=== PATIENT | male | born 1965 | race Caucasian/White ===

== ENCOUNTER 2025-01-11 20:16 | Emergency (ER) | payer OTHER, SELFPAY ==
--- OUTSIDE RECORDS SUMMARY | 2020-03-15 09:01 | XMS_ITS | Continuity of Care Document ---
Author Organization [facility] Address [address] [address] [place] [address] Phone Care Team Providers Care Web Merchandiser Name Role Phone Kierra Peraza CRNA Unavailable Unavailab le Allergies, Adverse Reactions, Alerts Substance Reaction Status Criticality No Known Allergies Active No Inform ation Medications Medication Instructions Dosage Effective Dates (start - stop) Status Comments No Drug Therapy Prescribed Procedures Procedure Date Colonoscopy Flex; W/remov Les- Level Iv-surg Path Gross/micro Advance Directives Directive Yes / No Effective Date File Name No Information Encounters Encounter Description Practice Location Reason(s) For Visit Diagnoses Date Provider Providers Copied on Encounter [facility], [address] [address], [place], [place], [id number], tel:[phone] [facility] No Information 0 Karmen Lozada . [address] [facility], [facility] [address], [place], [place], [id number] , [place]. tel:[phone] Referring Provider: Kervin Rene MD M, [address] [facility] [address], [place], [address] . tel:[phone] [facility], [address] [address], [place], [place], [address], [place] tel:[phone] [facility] Colorectal polyp detected on colonoscopyDivertic ulosis of colon without diverticulitisHisto ry of adenomatous polyp of colonEncounter for screening for malignant neoplasm of colonBenign neoplasm of descending colonDvrtclos of lg int w/o perforation or abscess w/o bleedingBenign neoplasm of descending colonPersonal history of colonic polyps 0 Anju Galeana. [address] [facility], [facility] [address], [place], [place], [id number] , [place]. [phone] Referring Provider: Kendall Wilcox MD E, [address], [place], [address]. tel:[phone] [facility], [address] [address], [place], [place], [id number], [place] tel:[phone] [place] [facility] No Information 0 Anju Galeana. [address] [facility], [facility] [address], [place], [place], [id number] , [place]. tel:[phone] Family History Family Member Type Diagnosis Age At Onset No Information Immunizations Vaccine Date Status Comments Influenza administered Note: [facility] bi-d irectional interface ; Source: Other Registry influenza, live, intranasal, quadrivalent administered Note: [facility] bi-direct ional interface ; Source: Other Registry influenza, live, intranasal, quadrivalent administered Note: [facility] bi-direct ional interface ; Source: Other Registry influenza virus vaccine, eileen e, attenuated, for intranasal use administered Note: MII C bi- directional interface ; Source: Other Registry influenza virus vaccine, eileen e, attenuated, for intranasal use administered Note: MII C bi- directional interface ; Source: Other Registry influenza virus vaccine, eileen e, attenuated, for intranasal use administered Note: MII C bi- directional interface ; Source: Other Registry Payers Payer name Insurance type Covered democrat ID Authoriza tion(s) No Information Social History Type Description Quantity Date Captured Comments Sex Male Smoking Status No Information Chief Complaint And Reason For Visit No Information Reason For Referral Reason For Referral No Information History Of Present Illness Encounter Date Complaint History Of Prese nt Illness No Information Functional Status Date Functional Assessmen t No Information Medications Administered Medication Instructions Dosage Effective Dates (start - stop) Status Comments No Drug Therapy Prescribed Instructions Date Instruction Additional Infor mation Diverticulosis/Diverticulitis Re lated to Colorectal polyp detected on colonoscopy Colon Polyps Related to Color ectal polyp detected on colonoscopy Colon Cancer Prevention Related to Colorectal polyp detected on colonoscopy High Fiber Diet Related to Color ectal polyp detected on colonoscopy Assessments Type Assessment Date No Information Patient Care Teams Name Effective Dates (start - stop) Status Members No Information
--- OUTSIDE RECORDS SUMMARY | 2025-01-11 20:20 | XMS_ITS | Clinical Summary ---
Author Organization [facility] Address [address] [place] [address] Care Team Providers Care Shaker Operator Name Role Phone Kendall Wilcox MD Primary Care Provider [phone] Allergies No known active allergies Medications carbamide peroxide (DEBROX) 6.5 % otic solutionIndicati ons:Impacted cerumen, bilateral Place 5 Drops into left ear two times daily. 15 mL 01/13/20 22 Active Additional Information Patient not taking.Reported on 11/10/2024 losartan (COZAAR) 25 mg tabletIndication s:Essential hypertension Take 1 Tablet (25 mg) by mouth once daily in the evening. 90 Tablet 1 11/11/19 25 Active acetaminophen (TYLENOL EXTRA STRGTH) 500 mg tabletIndication s:Fever in adult Take 2 Tablets (1,000 mg) by mouth one time if needed for Temp>101.5F (38.6C) (temp > 100.5) for up to 1 day. Max acetaminophen dose: 4000mg in 24 hrs. 2 Tablet 01/12/20 25 025 Active Active Problems Problem Noted Date Diagnosed Date Other hyperlipidemia 07/24/2017 Adenomatous colon polyp 10/30/2016 Overview (10/30/2016): Colonoscopy 10/2016 polyp repeat in 3 years at [facility] with propofol, patient has vagovagal response at clinic Eosinophilic esophagitis 08/26/2015 Overview (08/26/2015): EGD 08/2015 eosinophilic esophagitis Encounters Date Type Department Care Team Description 01/11/2025 5:35 PM CDT Ancillary Procedure [facility] [address] [place] [address] Arrived 01/11/2025 4:00 PM CDT Office Visit [facility] [address] [place] [phone] Rosa Holcomb PA General Illness/Other (generalize fatigue and weakness, with chills, headaches, with right ear pain ) 01/11/2025 Travel 12/11/2024 9:00 AM CDT Orders Only [facility] [address] [place] [address] Laboratory, [facility] 12/11/2024 Travel 11/12/2024 Telephone [facility] [address] [place] [address] Kendall Wilcox MD Abnormal Lab Results 11/10/2024 3:35 PM CDT Office Visit [facility] [address] [place] [address] Kendall Wilcox MD Elbow Injury (Rt Elbow pain x 3 months /No injury /Pain at its worse -08/15) 11/10/2024 Travel 11/08/2024 Travel 11/04/2024 Travel 11/04/2024 Nurse Triage [facility] [address] [place] [address] Kendall Wilcox MD Elbow Pain/problem (Right elbow) 11/04/2024 Telephone [facility] [address] [place] [address] Kendall Wilcox MD Prior Authorization (Prior Authorization) from Last 3 Months Immunizations Immunization Administration Dates Next Due COVID-19 vaccine (Pfizer-Bio NTech 30mcg/0.3mL) 12YO+ ADA-SUCROSE PF MDV 08/28/2021 COVID-19 vaccine (Pfizer-Bio NTech 30mcg/0.3mL) PF, MDV 03/03/2021,07/28/2020,07/07/2020 Influenza, IIV4 (=>6mos) MDV 01/24/2016 Influenza,LAIV3 Live Intranasal (Flumist) 2011,01/15/2011,01/12/2010 Influenza,LAIV4 Live Intranasal (Flumist) 2013,01/21/2013 Tdap 02/23/2010 Family History Medical History Relation Name Comments Other Father alcoholic liver failure Anesthesia Problem No Family History Blood Disease No Family History Relation Name Status Comments Father Social History Tobacco Use Types Packs/Day Years Used Date Smoking Tobacco: Never Smokeless Tobacco: Never Tobacco Cessation:Counseling Given: Yes Alcohol Use Standard Drinks/Week Comments Yes 3.3 (1 standard drink = 0.6 oz p ure alcohol) wine with dinner PHQ-2 Answer Date Recorded PHQ-2 TOTAL SCORE 0 11/10/2024 Social Connections Answer Date Recorded Do you often feel lonely or isolated from those around you? 0 11/08/2024 Financial Resource Strain Answer Date R ecorded Difficulty of Paying Living Expenses 3 11/08/2024 Difficulty of Paying Living Expenses Not on file 11/08/2024 Food Insecurity Answer Date Recorded Do you worry your food will run out before you are able to buy more? 1 11/08/2024 Transportation Needs Answer Date Record ed Does lack of transportation keep you from medica l appointments? 1 11/08/2024 Does lack of transportation keep you from work, meetings or getting things that you need? 1 11/08/2024 Housing Stability Answer Date Recorded What is your housing situation today? 1 11/08/2024 Utilities Answer Date Recorded Do you have trouble paying f or utilities (for example, heat, electricity, water, phone)? 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[employer] Not on file Not on file Not on file Obstetrics History Last Filed Vital Signs Vital Sign Reading Time Taken Comments Blood Pressure 131/80 01/11/2025 7:00 PM CDT Pulse 66 01/11/2025 7:00 PM CDT Temperature 38.4 C (101.1 F) 01/11/2025 6:58 PM CDT Respiratory Rate 18 01/11/2025 7:00 PM CDT Oxygen Saturation 100% 01/11/2025 7:00 PM CDT Inhaled Oxygen Concentration - - Weight 113.9 kg (251 lb) 01/11/2025 4:17 PM CDT Height 185.4 cm (6' 1) 11/10/2024 3:28 PM CDT Body Mass Index 33.12 11/10/2024 3:28 PM CDT Plan of Treatment Health Maintenance Due Date Last Done Comments HIV for age 15-65 1980 Hepatitis C screening for ag e 18-79 08/12/1983 Hepatitis B series for 19+ ( 1 of 3 - 19+ 3-dose series) 1984 Pneumococcal series for age 50+ (1 of 2 - PCV) 1984 Zoster (shingles) series for age 50+ (1 of 2) 08/12/2015 Tetanus booster 02/24/2020 02/23/2010 Lipids for age 45-75 08/15/2022 08/15/2017, 08/03/19 16 Colonoscopy through age 75 03/15/202303/15, 10/26/2016, 10/26/2016 COVID-19 vaccine series ( season) 2024 08/28/2021, 03/03/2021, 07/28/2020, Additional history exists Influenza Vaccine (#1) 2024 6, 01/12/2014, 01/21/2013, Additional history exists BMI (ht and wt on same day) for age 18+ 11/10/2025 11/10/2024, 06/17/2018, 07/24/2017, Additional history exists Depression screening for age 12+ 11/10/2025 11/10/2024, 07/24/2017, 08/03/2015 RSV vaccine for adults or (1 - 1-dose 75+ series) 2040 Procedures Procedure Name Priority Date/Time Associated Diagnosis Comments CBC WITH AUTO DIFFERENTIAL STAT 01/11/2025 6:42 PM CDT Weakness CBC WITH AUTO DIFFERENTIAL STAT 01/11/2025 6:42 PM CDT Weakness BASIC METABOLIC PANEL STAT 01/11/2025 6:02 PM CDT Weakness XR CHEST 2 VIEWS PA AND LATERAL STAT 01/11/2025 5:37 PM CDT Weakness HEMOGLOBIN A1C MONITORING (POCT) Routine 12/11/2024 8:58 AM CDT New onset type 2 diabetes mellitus (HC) BASIC METABOLIC PANEL Routine 12/11/2024 8:58 AM CDT Essential hypertension BASIC METABOLIC PANEL Routine 11/10/2024 4:40 PM CDT Essential hypertension SCAN-COLONOSCOPY 03/15/2020 2:00 PM SOCIAL SCIENCE RESEARCH ASSISTANT LIPID PANEL W REFLEX MEASURED LDL Routine 08/15/2017 8:31 AM CDT Other hyperlipidemia from Last 3 Months or Most Recently Relevant to Health Maintenance Results * CBC WITH AUTO DIFFERENTIAL (01/11/2025 6:42 PM CDT) WHITE BLOOD COUNT 5.5 4.5 - 11.0 thou/cu mm 01/11/2025 7:04 PM [facility] RED BLOOD COUNT 5.17 4.30 - 5.90 mil/cu mm 01/11/2025 7:04 PM [facility] HEMOGLOBIN 15.4 13.5 - 17.5 g/dL 01/11/2025 7:04 PM [facility] HEMATOCRIT 44.1 37.0 - 53.0 % 01/11/2025 7:04 PM [facility] MCV 85 80 - 100 fL 01/11/2025 7:04 PM [facility] MCH 29.8 26.0 - 34.0 pg 01/11/2025 7:04 PM [facility] MCHC 34.9 32.0 - 36.0 g/dL 01/11/2025 7:04 PM [facility] RDW 12.7 11.5 - 15.5 % 01/11/2025 7:04 PM CDT [facility] PLATELET COUNT 259 140 - 440 thou/cu mm 01/11/2025 7:04 PM T [facility] MPV 10.0 6.5 - 11.0 fL 01/11/2025 7:04 PM T [facility] % NEUT 59.5 % 01/11/2025 7:04 PM [facility] % LYMPH 28.0 % 01/11/2025 7:04 PM T [facility] % MONO 11.2 % 01/11/2025 7:04 PM [facility] % EOS 0.9 % 01/11/2025 7:04 PM [facility] % BASO 0.4 % 01/11/2025 7:04 PM T [facility] ABSOLUTE NEUTROPHILS 3.3 1.7 - 7.0 thou/cu mm 01/11/2025 7:04 PM [facility] ABSOLUTE LYMPHOCYTES 1.5 0.9 - 2.9 thou/cu mm 01/11/2025 7:04 PM T [facility] ABSOLUTE MONOCYTES 0.6 <0.9 thou/cu mm 01/11/2025 7:04 PM [facility] ABSOLUTE EOSINOPHILS 0.1 <0.5 thou/cu mm 01/11/2025 7:04 PM [facility] ABSOLUTE BASOPHILS 0.0 <0.3 thou/cu mm 01/11/2025 7:04 PM [facility] Blood BLOOD SPECIMEN / Unknown [facility] / Unknown 01/11/2025 6:42 PM CDT 01/11/2025 6:48 PM CDT us Rosa BAE HEMATOLOGY Final R esult [facility] [address] [place] [address] * (ABNORMAL) BASIC METABOLIC PANEL (01/11/2025 6:02 PM CDT) Only the most recent of3 resultswithin the time period is included. SODIUM 129(L) 136 - 145 mmol/L 01/11/2025 6:31 PM [facility] POTASSIUM 4.5 3.5 - 5.1 mmol/L 01/11/2025 6:31 PM [facility] CHLORIDE 94(L) 98 - 107 mmol/L 01/11/2025 6:31 PM [facility] CO2,TOTAL 22 22 - 29 mmol/L 01/11/2025 6:31 PM [facility] ANION GAP 13 5 - 18 01/11/2025 6:31 PM [facility] GLUCOSE 100(H) 70 - 99 mg/dL 01/11/2025 6:31 PM [facility] CALCIUM 9.7 8.8 - 10.4 mg/dL 01/11/2025 6:31 PM [facility] Comment: Reference ranges for this test were updated on 02/11/2024 to reflect our healthy population more accurately. Reference range changes are not retroactively applied to results, but previous results using the same methodology can be interpreted in the context of the new reference range. BUN 13 6 - 20 mg/dL 01/11/2025 6:31 PM [facility] CREATININE 0.93 0.70 - 1.20 mg/dL 01/11/2025 6:31 PM [facility] BUN/CREAT RATIO 14 10 - 20 6:31 PM [facility] eGFR >90 >90 mL/min/1. 73m2 01/11/2025 6:31 PM [facility] Comment:As of 2021, eG FR is calculated by the CKD-EPI creatinine equation without race adjustment. eGFR can be influenced by muscle mass, exercise, and diet. The reported eGFR is an estimation only and is only applicable if the renal function is stable. Blood BLOOD SPECIMEN / Unknown [facility] / Unknown 01/11/2025 6:02 PM CDT 01/11/2025 6:02 PM CDT Rosa BAE CHEMISTRY Final R esult [facility] [address] [place] [id number] * XR CHEST 2 VIEWS PA AND LATERAL (01/11/2025 5:37 PM CDT) Anatomical Region Laterality Modality CHEST, THORAX, Lung, HEART Compu jesse Radiography 01/11/2025 5:57 PM CDT Narrative 01/11/2025 5:57 PM CDT For Patients: As a result of the Cures Act, medical imaging exams and procedure reports are released immediately into your electronic medical record. You may view this report before your referring provider. If you have questions, please contact your health care provider. Indication: Weakness Technique: Chest 3 views. Comparison: None. Findings/Impression: Cardiovascular and mediastinum: Heart size is normal. Unremarkable mediastinum. Lungs and pleural spaces: Minimal bibasilar atelectasis. The lungs are otherwise clear. No pleural effusion or pneumothorax. Bones and soft tissues: No acute or significant findings. Dictated by Janay Byrne MD @ 01/11/2025 5:57:20 PM (Electronically Signed) Procedure Note Janay Byrne MD - 01/11/2025 For Patients: As a result of the Cures Act, medical imagingexams and procedure reports are released immediately into your electronicmedical record. You may view this report before your referring provider.If you have questions, please contact your health care provider. Indication: Weakness Technique: Chest 3 views. Comparison: None. Findings/Impression: Cardiovascular and mediastinum: Heart size is normal. Unremarkablemediastinum. Lungs and pleural spaces: Minimal bibasilar atelectasis. The lungs areotherwise clear. No pleural effusion or pneumothorax. Bones and soft tissues: No acute or significant findings. Dictated by Janay Byrne MD @ 01/11/2025 5:57:20 PM (Electronically Signed) Rosa BAE GENERAL IMAGING Final R esult * (ABNORMAL) HEMOGLOBIN A1C MONITORING (POCT) (12/11/2024 8:58 AM CDT) POC HEMOGLOBIN A1C 7.1(H) <6.0 % OF TOTAL HGB 12/11/2024 9:25 AM CDT [facility] Comment: Any point of care results exhibiting inconsistency with the patient's clinical status should be repeated using a different testing method. Blood BLOOD SPECIMEN / Unknown [facility] / Unknown 12/11/2024 8:58 AM CDT 12/11/2024 8:59 AM CDT Narrative [facility] - 12/11/2024 9:25 AM CDT FASTING:YES FASTING: YES us Kendall Wilcox MD CHEMISTRY Final Resu lt [facility] [address] [address], [place] [address], * SCAN-COLONOSCOPY (03/15/2020 2:00 PM SOCIAL SCIENCE RESEARCH ASSISTANT) Narrative Procedure Note Kervin Deutsch MD - 03/15/2020 1:[address] [facility] [address] [place] [address], [address], [place] [address] Patient Name: Jorge Luis Domingo Gender: Male Exam Date: 03/15/2020 Visit Number: [id number] Age: 54 Years Date of : 1965 Attending MD: Kervin Rene MD Medical Record#: [id number] Procedure: Colonoscopy Indications: Previous advanced adenomatous polyp(s) Referring MD: Kendall Wilcox MD Primary MD: Kendall Wilcox MD Medications: Admitting Medications: 0.9% Normal Saline at TKO Intra Procedure Medications: Patient received monitored anesthesia care. Complications: No immediate complications Procedure: An examination of the heart and lungs was performed and found to be withinacceptable limits. The patient was therefore deemed a reasonablecandidate for endoscopy and sedation. The risks and benefits of the procedure were explained to the patient.After obtaining informed consent, the patient received monitoredanesthesia care and I passed the scope without difficulty via the rectum to the cecum. The appendiceal orificeand ic valve were identified. The scope was retroflexed during theexamination The quality of the prep was excellent (Miralax/Gatorade/2tablets Bisacodyl/Magnesium Citrate). This was a complete examination throughout the entire colon. Findings: Polyp location: descending colon. Quantity: 1. Size: 3 mm. Polyp shape:sessile. Maneuver: polypectomy was performed with a cold snare. Removal: complete. Retrieval: complete. Bleeding: none. Diverticulosis. Location: - descending colon - sigmoid. Quantity:few. No inflammation present. Remainder of the exam is normal. Impression: Colorectal polyp detected on colonoscopy Diverticulosis of colon without diverticulitis History of adenomatous polyp of colon Preliminary Plan: Repeat colonoscopy in 5 years Pathology Results: A: COLON, DESCENDING, POLYP: 1. Tubular adenoma 2. Negative for high grade dysplasia 3. Per the colonoscopy report: a. Polyp size: 3 mm b. Resection: Complete c. Retrieval: Complete MICROSCOPIC A: Performed Electronically signed by: Cassidy Dominguez MD Interpreted at [facility], [address] [place] [address] Orders Instruction(s)/Education: Instruction/Education Timeframe Assessment Colon Cancer Prevention K63.5 Colon Polyps K63.5 Diverticulosis/Diverticulitis K63.5 High Fiber Diet K63.5 Final Plan: Return for a colonoscopy in 5 years. We will attempt to contact you at appropriate intervals via U.S. mail. Wemay not be able to find you or contact you at that time, therefore youshould know that the responsibility for following our recommendation restswith you. If you don't hear from us at the time your procedure is due,please contact our office to schedule an appointment. If your contactinformation should change, please contact our office so that we can updateyour record. _Electronically signed by: Kervin Rene MD 03/15/2020 cc: Kendall Wilcox MD cc: Kendall Wilcox MD us Kervin Deutsch MD OTHER Verónica l Result * (ABNORMAL) LIPID PANEL W REFLEX MEASURED LDL (08/15/2017 8:31 AM CDT) CHOLESTEROL,TOTAL 236(H) 100 - 199 mg/dL 08/15/2017 3:58 PM CDT [facility] TRIGLYCERIDES 142 <150 mg/dL 08/15/2017 3:58 PM CDT [facility] HDL CHOLESTEROL 38(L) >40 mg/dL 8 3:58 PM CDT [facility] NON-HDL CHOLESTEROL 198(H) <145 mg/dl 08/15/2017 3:58 PM CDT [facility] CHOL/HDL RATIO 6.21(H) <4.50 08/15/2017 3:58 PM CDT [facility] LDL CHOLESTEROL 170(H) <=130 mg/dL 08/15/2017 3:58 PM CDT [facility] PROVIDER ORDERED STATUS RANDOM 08/15/2017 3:58 PM CDT [facility] Blood BLOOD SPECIMEN / Unknown Venipuncture / Unknown 08/15/2017 8:31 AM CDT 08/15/2017 8:31 AM CDT us Kendall Wilcox MD CHEMISTRY Final [facility] [address] [place] [address], [place] from Last 3 Months or Most Recently Relevant to Health Maintenance Insurance [facility] [employer] AND FAMILY PLANS Care Teams Shaker Operator Relationship Specialty Start Date End Date Kendall Wilcox MD [address] [place] [address] PCP - General Family Practice 07/28/15
--- NOTE | 2025-01-11 20:21 | ED.GENADULT ---
HPI - General Adult General Time Seen by Provider: 20:21 Date Seen: 01/11/25 Chief complaint: Fever Stated complaint: Fever Time Seen by Provider: 01/11/25 20:21 Source: patient, RN notes reviewed and old records reviewed Mode of arrival: ambulatory Limitations: no limitations History of Present Illness HPI narrative: 59-year-old male who presents with fever, body aches, headache the past week. Headache is been intermittent, right-sided. Subjective fever and chills, fatigue, and slight cough. Denies chest pain, abdominal pain, nausea, vomiting, or diarrhea, no urinary symptoms. Took ibuprofen earlier today and then Tylenol about 7:00 p.m.. Patient was seen at urgent care and by their report, patient did develop a fever 101.7 and had some shaking rigors. Related Data Home Medications ?Medication ?Instructions ?Recorded ?Confirmed losartan 25 mg tablet 25 mg PO DAILY 01/11/25 01/11/25 Allergies Allergy/AdvReac Type Severity Reaction Status Date / Time No Known Drug Allergies Allergy Verified 01/11/25 20:32 PFSH PFS Social History Smoking Status: Never smoker How often do you have a drink containing alcohol: monthly or less AUDIT-C Alcohol total score: 1 Non-prescribed substance use: denies use service: No Exam Narrative: Exam Narrative: General: Well-developed and well-nourished, no acute distress Head: Atraumatic and normocephalic Eyes: Pupils are equal reactive, extraocular motions intact, conjunctiva clear ENT: External nose and ears are normal, posterior pharynx without erythema or exudate Neck: No midline cervical tenderness, full spontaneous range of motion the neck, trachea midline, no adenopathy Heart: Regular rate and rhythm no murmurs or thrills Lungs: Trace wheezes on the right Abdomen: Soft, nontender, nondistended with active bowel sounds Musculoskeletal: No tenderness, deformity, or edema Neurologic: Awake, alert, and oriented x3, no gross focal neurologic deficits, cranial nerves intact as tested Psych: Mood and affect are appropriate Skin: No rashes Const: Vital Signs, click to edit/add: Vital Signs - 24 hr 01/11/25 20:27 01/11/25 22:45 01/11/25 22:48 Temperature 98.7 F 98.8 F Pulse Rate [Pulse Oximeter] 81 89 Respiratory Rate 20 18 Blood Pressure [Ri ght Upper Arm] 111/68 82/59 L 112/72 Pulse Oximetry 95 94 Oxygen Delivery Me thod Room Air Room Air Course Course ED Course: Reviewed urgent care visit from moved a which was for the same symptoms, at that time normal white blood cell count, mild hyponatremia but otherwise normal basic panel, chest x-ray negative for acute findings. Patient presents today with fatigue, body aches, right-sided headache, malaise for about a week. Denies vomiting, abdominal pain, breathing difficulty, diarrhea, urinary symptoms. Did have some shaking rigors earlier today. On exam vital is stable without fever include no nuchal rigidity, no focal neurologic deficits. No recent tick bites to suggest tick-borne illness. Possible viral process, respiratory of testing ordered. Also consider bacteremia blood cultures will be done. Reevaluation(s) Time of Reevaluation #1: 21:35 Reevaluation #1: Labs independently interpreted by me with normal CBC, normal hepatic panel, negative respiratory panel. CT scan of the chest ordered to evaluate for intrathoracic pathology. Time of Reevaluation #2: 22:00 Reevaluation #2: CT chest independently interpreted by me does not demonstrate acute intrathoracic findings, does demonstrate gallstones. Patient did develop hypotension in the department, one low reading. CT abdomen pelvis ordered to have intra-abdominal pathology causing fever and hypotension. If negative, patient can be discharged. Time of Reevaluation #3: 23:12 Reevaluation #3: List CT abdomen and pelvis in the middle interpreted by me negative for acute findings. If radiology interpretation agrees, anticipate discharge with outpatient follow-up. Blood cultures are still pending. Additional Reevaluation(s): 12:15 a.m. reviewed radiology interpretation of CT scan which is negative for acute intra-abdominal findings. Stable for discharge. Urinalysis negative for infection. Vital Signs Vital signs: Initial Vital Signs Temperature 98.7 F 01/11/25 20:27 Temperature Source Temporal Artery Scan 01/11/25 20:27 Pulse Rate 81 01/11/25 20:27 Respiratory Rate 20 01/11/25 20:27 Blood Pressure 111/68 01/11/25 20:27 Blood Pressure Mean 82 01/11/25 20:27 Blood Pressure Position Sitting 01/11/25 20:27 Pulse Oximetry 95 01/11/25 20:27 Oxygen Delivery Method Room Air 01/11/25 20:27 Vital Signs Temperature 98.7 F 01/11/25 20:27 Pulse Rate 81 01/11/25 20:27 Respiratory Rate 20 01/11/25 20:27 Blood Pressure 111/68 01/11/25 20:27 Pulse Oximetry 95 01/11/25 20:27 Oxygen Delivery Method Room Air 01/11/25 20:27 Temperature 98.8 F 01/11/25 22:45 Pulse Rate 89 01/11/25 22:45 Respiratory Rate 18 01/11/25 22:45 Blood Pressure 112/72 01/11/25 22:48 Pulse Oximetry 94 01/11/25 22:45 Oxygen Delivery Method Room Air 01/11/25 22:45 Medications Administered Medications: Discontinued Medications Generic Name Dose Route Start Last Admin Trade Name Freq PRN Reason Stop Dose Admin Sodium Chloride 1,000 mls @ 1,000 mls/hr 01/11/25 22:45 01/11/25 23:43 0.9 % Sodium Chloride 1000 Ml IV 01/11/25 23:44 Infused .Q1H SUMAN Infusion Medical Decision Making Lab Data Labs: Lab Results 01/11/25 01/11/25 01/11/25 Range/Units 20:22 20:55 23:35 WBC 5.77 (4.50-11.00) K/uL RBC 5.03 (4.30-5.90) m/uL Hgb 14.9 (13.5-17.5) gm/dL Hct 42.3 (37.0-53.0) % MCV 84 (80-100) fL MCH 30 (26-34) pg MCHC 35 (32-36) gm/dL RDW Coeff of Kellie 12.4 (11.5-15.5) % Plt Count 274 (140-440) K/uL Neut % (Auto) 59.0 (42.0-72.0) % Lymph % (Auto) 28.4 (20-44) % [place] % (Auto) 10.4 (0.0-11.0) % Eos % (Auto) 1.0 (0.0-7.0) % Baso % (Auto) 1.2 (0.0-3.0) % Neut # (Auto) 3.40 (1.7-7.0) K/uL Lymph # (Auto) 1.64 (0.90-2.90) K/uL [place] # (Auto) 0.60 (0.00-0.90) K/UL Eos # (Auto) 0.06 (0.00-0.50) K/uL Baso # (Auto) 0.07 (0.00-0.30) K/uL Abs Immat Gran (auto) 0.00 (0.00-0.30) K/uL Imm/Tot Granulo (auto) 0.0 % Lactate 1.4 (0.5-1.9) mmol/L Magnesium 1.9 (1.5-2.6) mg/dL Total Bilirubin 1.0 (0.1-1.5) mg/dL Direct Bilirubin 0.1 (0.0-0.5) mg/dL AST 28 (12-35) U/L ALT 22 (4-50) U/L Alkaline Phosphatase 50 (40-150) U/L Total Protein 6.9 (6.0-8.3) g/dL Albumin 4.4 (3.3-5.0) g/dL Urine Color Yellow (Yellow) Urine Appearance Clear (Clear) Urine pH 7.0 (5.0-8.5) Ur Specific [place] 1.010 (1.000-1.030) Urine Protein Negative (Negative) Urine Glucose (UA) Negative (Negative) Urine Ketones Negative (Negative) Urine Blood Negative (Negative) Urine Nitrite Negative (Negative) Urine Bilirubin Negative (Negative) Urine Urobilinogen 0.2 (0.2-1.0) Ur Leukocyte Esterase Negative (Negative) Urine RBC 0-2 (0-2) Urine WBC 0-2 (0-5) Ur Squamous Epith Cells Few (None-Few) Urine Bacteria None (None) SARS-CoV-2 (PCR) Negative SARS-CoV-2 (Negative) Influenza Type A (PCR) Negative PCR FLU A (Negative) Influenza Type B (PCR) Negative PCR FLU B (Negative) RSV (PCR) Negative PCR RSV (Negative) Discharge Plan Discharge Clinical Impression: Fever, Headache, Fatigue Patient Disposition: Home, Self-Care Condition: Stable Instructions: Fever in Adults (ED) Additional Instructions: Take Tylenol and ibuprofen as needed for pain and fever Follow-up with your primary care doctor in 2-3 days for recheck Your blood cultures will be done in 2-3 days, you will be contacted if they show bacteria in the blood Activity Level: Activity as Tolerated Prescriptions: No Action losartan 25 mg tablet 25 mg PO DAILY Follow Up/Referrals: Kendall Wilcox MD [Primary Care Provider, Family Practice] Stand Alone Forms: [email or web address] Info Instructions
[2025-01-11 20:27] VITALS: BP 111/68; PULSE 81; RESP 20; TEMP 37.1; O2SAT 95; BMI 33.1
[2025-01-11 21:08] LABS: Lactate* 1.4 mmol/L (0.5-1.9)
[2025-01-11 21:13] LABS: Hematocrit* 42.3 % (37.0-53.0); Hemoglobin* 14.9 gm/dL (13.5-17.5); Immature Granulocytes Abs Auto 0.00 K/uL (0.00-0.30); Immature Granulocytes Pct Auto 0.0 %; Lymphocytes Absolute Auto 1.64 K/uL (0.90-2.90); Mean Corpuscular HGB Conc 35 gm/dL (32-36); Mean Corpuscular Hemoglobin 30 pg (26-34); Mean Corpuscular Volume 84 fL (80-100); RDW Coefficient of Variation % 12.4 % (11.5-15.5); Red Blood Count* 5.03 m/uL (4.30-5.90); White Blood Count* 5.77 K/uL (4.50-11.00)
[2025-01-11 21:26] LABS: Albumin* 4.4 g/dL (3.3-5.0); Slide Review Reflex No
[2025-01-11 21:28] LABS: Alanine Aminotransferase* 22 U/L (4-50); Alkaline Phosphatase* 50 U/L (40-150); Aspartate Amino Transferase* 28 U/L (12-35); Bilirubin Direct* 0.1 mg/dL (0.0-0.5); Bilirubin Total* 1.0 mg/dL (0.1-1.5); Total Protein* 6.9 g/dL (6.0-8.3)
[2025-01-11 21:29] LABS: PCR FLU A Negative PCR FLU A (Negative); PCR FLU B Negative PCR FLU B (Negative); PCR RSV Negative PCR RSV (Negative); SARS PCR* Negative SARS-CoV-2 (Negative)
--- NOTE | 2025-01-11 21:35 | CRLHL7_ITS ---
For Patients: As a result of the Century Cures Act, medical imaging exams and procedure reports are released immediately into your electronic medical record. You may view this report before your referring provider. If you have questions, please contact your health care provider. INDICATION: Chest pain, fever, cough. TECHNIQUE: CT chest without contrast. COMPARISON: None. FINDINGS: Lungs and pleura: Lungs and pleural spaces are clear. No suspicious nodules or infiltrates. No pleural effusions, pleural thickening, or pneumothorax. Heart and vasculature: Heart size is normal. Thoracic aorta and pulmonary artery are normal in caliber. Coronary artery calcifications. Lymph nodes/mediastinum: No mediastinal, hilar, or axillary adenopathy. Asymmetric enlargement of the left thyroid lobe with underlying nodules. Chest wall: No masses. Upper abdomen: Cholelithiasis. Bones: Unremarkable for age. IMPRESSION: 1. No acute pulmonary findings. 2. Asymmetric enlargement of the left thyroid lobe with underlying nodules. Recommend further characterization with nonemergent thyroid ultrasound. 3. Cholelithiasis. Please note that all CT scans at this facility use dose modulation, iterative reconstruction, and/or weight-based dosing when appropriate to reduce radiation dose to as low as reasonably achievable. Dictated by Ej Tesfaye MD @ 01/11/2025 10:50:04 PM (Electronically Signed)
[2025-01-11 22:45] VITALS: BP 82/59; PULSE 89; RESP 18; TEMP 37.1; O2SAT 94
[2025-01-11 22:48] VITALS: BP 112/72
--- NOTE | 2025-01-11 22:49 | CRLHL7_ITS ---
For Patients: As a result of the Century Cures Act, medical imaging exams and procedure reports are released immediately into your electronic medical record. You may view this report before your referring provider. If you have questions, please contact your health care provider. INDICATION: Fever, rigors. TECHNIQUE: CT abdomen and pelvis acquired with 123 cc Isovue 370 IV contrast. COMPARISON: None. FINDINGS: Lower chest: Unremarkable. Liver: Unremarkable. Normal in size and attenuation. No suspicious masses. Gallbladder and bile ducts: Cholelithiasis. No inflammation. No biliary ductal dilatation. Spleen: Unremarkable. Normal in size. No masses. Adrenal glands: Unremarkable. No nodules. Pancreas: Unremarkable. No mass or inflammation. Kidneys: Unremarkable. No suspicious masses, stones, or hydronephrosis. GI tract: Colonic diverticulosis without evidence of diverticulitis. No evidence of obstruction. Normal appendix. Lymph nodes: No lymphadenopathy. Vasculature: Unremarkable. Omentum/Peritoneum/Abdominal Wall: Fat containing umbilical hernia. No free air or significant free fluid. Pelvis: Prostatomegaly. Bones: Unremarkable for age. IMPRESSION: 1. No acute abdominal or pelvic abnormality. 2. Cholelithiasis. 3. Colonic diverticulosis. 4. Prostatomegaly. Please note that all CT scans at this facility use dose modulation, iterative reconstruction, and/or weight-based dosing when appropriate to reduce radiation dose to as low as reasonably achievable. Dictated by Ej Tesfaye MD @ 01/12/2025 12:14:18 AM (Electronically Signed)
[2025-01-11 23:44] LABS: Appearance Urine Clear (Clear)
== END 2025-01-12 00:24 | disposition home or self-care (01) ==
PROVIDERS: Emergency Provider Family Medicine; PCP Family Medicine
DX: R50.9 Fever, unspecified (principal); R51.9 Headache, unspecified; R53.83 Other fatigue
CPT/HCPCS: 36415; 71250; 74177; 80076; 81001; 83605; 83735; 85025; 87040; 87631; 96360; 99284; 99285; J7030; Q9967

== ENCOUNTER 2025-03-23 15:00 | Outpatient (RCR) | payer OTHER, SELFPAY | END 2025-03-23 15:49 | disposition home or self-care (01) | PROVIDERS: PCP Family Medicine; Visit Provider Family Medicine | DX: M77.11 Lateral epicondylitis, right elbow (principal); M25.531 Pain in right wrist; Z51.89 Encounter for other specified aftercare | CPT/HCPCS: 97035; 97110; 97140; 97165; 97530; X5282 ==